=== PATIENT | female | born 1990 ===

== ENCOUNTER 2020-12-16 07:29 | Outpatient (CLI) | payer OTHER | END 2020-12-16 07:32 | disposition home or self-care (01) | LOC: NUCLEAR 07:29 | DX: K31.84 Gastroparesis (principal); R10.13 Epigastric pain | CPT/HCPCS: 78264; A9541 ==

== ENCOUNTER 2022-10-15 08:05 | Outpatient (CLI) | payer OTHER | END 2022-10-15 08:28 | disposition home or self-care (01) | LOC: MAMO-SONO 08:05 | DX: N64.9 Disorder of breast, unspecified (principal); N63.20 Unspecified lump in the left breast, unspecified quadrant; D73.89 Other diseases of spleen ==